=== PATIENT | female | born 1945 | race Caucasian/White ===

== ENCOUNTER → 2020-12-02 14:44 | Outpatient (BNVA) | payer OTHER, SELFPAY | PROVIDERS: PCP Family Medicine; Visit Provider Urology | DX: Z76.89 Persons encountering health services in other specified circumstances (principal) ==

== ENCOUNTER → 2021-07-16 13:27 | Outpatient (BNVA) | payer MEDICARE, SELFPAY | PROVIDERS: PCP Family Medicine | CPT/HCPCS: Q3014 ==

== ENCOUNTER → 2022-01-31 14:28 | Outpatient (BNVA) | payer MEDICARE, SELFPAY | PROVIDERS: PCP Family Medicine | DX: N20.0 Calculus of kidney (principal); N28.1 Cyst of kidney, acquired | CPT/HCPCS: 99212 ==

== ENCOUNTER 2022-02-28 12:40 | Outpatient (REF) | payer MEDICARE, SELFPAY ==
--- NOTE | ~2022-02-28 | CT_ITS ---
EXAMINATION: CT ABDOMEN AND PELVIS WITHOUT CONTRAST CLINICAL INFORMATION: Calculus of kidney. COMPARISON: None TECHNIQUE: Multidetector volumetric imaging was performed from the superior aspect of the liver through the pubic symphysis. Sagittal and coronal reformatted images were obtained on the technologist's workstation. This CT examination was performed using dose optimization techniques as appropriate, variously including the following: *Automated exposure control *Adjustment of mA and/or kV according to patient size (this includes techniques or standardized protocols for targeted exams where dose is matched to indication/reason for exam; i.e. extremities or head) *Use of iterative reconstruction technique DLP: 327 mGy-cm FINDINGS: LUNG BASES: The lung bases are clear. The heart size is normal. There are moderate coronary artery calcifications. No pericardial effusion is seen. LIVER, GALLBLADDER, AND BILIARY TREE: The liver is normal in size, shape, and attenuation. No focal hepatic lesion or biliary ductal dilatation is present. The gallbladder has been surgically removed. PANCREAS: Unremarkable. SPLEEN: Unremarkable. ADRENAL GLANDS: There is a 1 cm right adrenal lesion measuring 4 Hounsfield units. The left adrenal gland is unremarkable. KIDNEYS AND URETERS: The kidneys are normal in size, shape, and attenuation. There are bilateral small nonobstructive 2-4 mm radiopaque calculi in the mid and lower poles of both kidneys. In addition there is lesion with calcified gan in the upper pole of the right kidney measuring 1.2 cm. There is no caliectasis or hydronephrosis. BLADDER: Unremarkable. GASTROINTESTINAL TRACT: There is scattered colonic diverticulosis without diverticulitis. There are post-surgical anastomotic changes along the sigmoid colon with a widely patent lumen. Cecum lies within the right lower pelvis. The small bowel loops are of normal caliber. Appendix is not visualized. No inflammatory process, free air or free fluid seen. ABDOMINAL WALL: No significant hernia is appreciated. LYMPH NODES: Normal. VASCULAR: There is atherosclerotic calcification of the abdominal aorta without aneurysmal dilatation. PELVIC VISCERA: The uterus is not visualized likely atrophied or surgically removed. No adnexal free fluid. No abnormal pelvic lymph nodes. OSSEOUS STRUCTURES: There is vacuum disc phenomena throughout the lumbar spine sparing the L5-S1 disc level. There is posterior hardware and disc hardware for L3-L4 disc fusion. CT/CT abdomen pelvis wo con IMPRESSION: Bilateral small nonobstructive radiopaque renal calculi without caliectasis or hydronephrosis. Lesion with calcified gan upper pole right kidney. Differential diagnoses includes complex cyst/lesion. There are no previous exams available for comparison. Previous cholecystectomy. Diffuse colonic diverticulosis with post-surgical anastomotic patent site in the sigmoid colon. Fleischner guidelines were followed.
== END 2022-02-28 12:41 | disposition home or self-care (01) ==
LOC: HO.CT 12:40
DX: N20.0 Calculus of kidney (principal); N28.1 Cyst of kidney, acquired
CPT/HCPCS: 74176

== ENCOUNTER → 2022-04-05 08:27 | Outpatient (BNVA) | payer MEDICARE, SELFPAY | PROVIDERS: PCP Family Medicine | DX: Z13.89 Encounter for screening for other disorder (principal) | CPT/HCPCS: Q3014 ==